=== PATIENT | male | born 1985 | race Caucasian/White ===

== ENCOUNTER 2021-06-07 17:01 | Emergency (ER) | payer OTHER, SELFPAY ==
[2021-06-07 17:02] VITALS: BP 145/111; PULSE 91; RESP 17; TEMP 36.6; O2SAT 99; BMI 28.3
[2021-06-07 17:08] VITALS: BP 145/111; PULSE 91; RESP 17; TEMP 36.6; O2SAT 99
--- NOTE | 2021-06-07 17:49 | NURSING ---
DR CARINE DEWEY
--- NOTE | 2021-06-07 18:50 | EX.ED.GUMALE ---
HPI History of Present Illness Chief Complaint: Complaint Narrative Narrative: Patient presents with penile pain after having vigorous sex 4 days ago. It was right lateral. He has no other complaints other than the pain and the swelling has gone down, he also just got a call from his partner that she has chlamydia. PFSH PFSH Home Medications doxycycline hyclate 100 mg PO BID #20 cap 06/07/21 [Rx Last Taken Unknown] Allergy/AdvReac Type Severity Reaction Status Date / Time pertussis vaccine,fluid Allergy Other Verified 06/07/21 17:04 [Pertussis Vaccine,Fluid] Social History Smoking Status: Current some day smoker tobacco type: cigarettes and smokeless tobacco ROS ROS ED ROS Narrative Past medical history: Reviewed, none Medications: Reviewed Social history: Noncontributory Review of systems: All systems negative except as indicated General: No fever Gastrointestinal: No abdominal pain, nausea vomiting or diarrhea Genitourinary: Penile pain as in HPI. No dysuria Musculoskeletal: Denies myalgias no difficulty with ambulation Skin: No rash Neurological: No sensory deficit Hematologic: No easy bleeding or easy bruising EXAM Physical Exam Narrative Exam Narrative: Physical exam General: Well nourished, Well developed, No Acute Distress. Cardiovascular: Regular rate, Regular rhythm Respiratory: No distress, CTA bilaterally Abdomen: Soft, Nontender, Nondistended : Examination of the penis reveals quite a bit of pain and swelling laterally, otherwise no discharge. No testicular pain. Back: Nontender, Normal Inspection. Negative for: CVA tenderness Extremities: Nontender, No edema Skin: Normal color, No rash Const Vital Signs: 06/07/21 17:02 06/07/21 17:08 Temperature 97.9 F 97.9 F Temperature Source Temporal Temporal Pulse Rate 91 91 Respiratory Rate 17 17 Blood Pressure 145/111 H 145/111 H Blood Pressure Mean 122 122 Pulse Ox 99 99 Oxygen Delivery Method Room Air Room Air MDM MDM MDM Narrative Medical decision making narrative: Patient was seen by urology, Dr. Rome who thinks the patient has a partial tear and will see him in the office, he is otherwise under strict instructions not to have sexual intercourse for 2 weeks. I will treat him with antibiotics for presumed GC and/or chlamydia. Discharge Plan Triage Chief Complaint: Complaint ED Provider: Steven Brewster Dx/Rx/DC Orders Clinical Impression: Penis injury Instructions: Chlamydia Prescriptions: New doxycycline hyclate 100 mg capsule 100 mg PO BID Qty: 20 RF: 0 Primary Care Provider: Care Physician,No Primary Referrals: Pineda Rome MD [STAFF PHYSICIAN] - (2 weeks) Care Physician,No Primary [Primary Care Provider] - 3-5 Days Disposition Disposition: Home, Self Care
[2021-06-07] MEDS: Doxycycline 100 MG CAPSULE PO (19:14)
[2021-06-07] MEDS: Ceftriaxone 500 MG Vial 250 MG IM (19:17)
--- NOTE | 2021-06-07 19:18 | PCM.CONS.U ---
Assessment & Plan Assessment/Plan (1) Penis injury: QUALIFIERS: Encounter type: initial encounter Qualified Code(s): S39.94XA - Unspecified injury of external genitals, initial encounter PLAN: On examination he has no defect in his cavernosal body he has been able to have normal straight erections with some minor discomfort since the incident. I recommended he stop using cock rings etc. during intercourse that could cause more bending also recommended he stop having intercourse for 2 weeks to allow the area to heal completely I would want to follow-up in my office for 2 weeks for an examination to make sure there is no changes were curvature. He understands is possible he could develop curvature Peyronie's disease as a result of this trauma. At this point I do not see any tear in the cavernosal body that requires surgical intervention. The patient will be discharged home with instructions to follow-up with me in 2 weeks in the office. HPI Consult Data Date of Consult: 06/07/21 HPI Narrative HPI Narrative: DORON SERRATO, is a 35 M who presents To the emergency room he was havig vigorous intercourse a few days ago, he was using a cock ring and during intercourse he heard a snap and had some pain h I looked at the photo and just had a very minor swellinge did not develop any severe swelling he had some minor swelling to the tactic picture on their iPhone on the lateral aspect of the penis in the middle of it. Since then he has been able to have erections reports having a straight erections report having one episode of intercourse without any problems some minor minor discomfort and was able to masturbate once with a straight erections. He has been doing a lot of Google search is wondered if he caused a i may have just had a partial tear of the cavernosal body but not a complete tearnjury to the penis. [facility] Home Medications No Known/Unobtainable [No Known Home Medications] 10/08/13 [History Last Taken Unknown] Allergy/AdvReac Type Severity Reaction Status Date / Time pertussis vaccine,fluid Allergy Other Verified 06/07/21 17:04 [Pertussis Vaccine,Fluid] Social History Smoking Status: Current some day smoker tobacco type: cigarettes and smokeless tobacco ROS Constitutional Constitutional: Denies chills, fever(s) or malaise Eyes Eyes: Denies blurry vision or change in vision ENT HEENT: Reports none Cardiovascular Cardiovascular: Denies chest pain or palpitations Respiratory/Chest Respiratory/Chest: Denies cough or shortness of breath with exertion Gastrointestinal Gastrointestinal: Denies abdominal pain, constipation or diarrhea Musculoskeletal Musculoskeletal: Denies back pain, joint stiffness or joint swelling Integumentary Integumentary: Denies dry skin, jaundice, lesions or rash Neurologic Neurologic: Denies confusion, syncope or weakness Psychiatric Psychiatric: Reports none; Denies anxiety or depression Endocrine Endocrinology: Denies excessive sweating, fatigue or flushing Hematologic/Lymphatic Hematologic/Lymphatic: Denies anemia, easy bleeding or easy bruising Physical Exam Const alert and oriented x3 General Appearance: cooperative HEENT normocephalic, head/scalp atraumatic, EAC's normal and TM's normal bilaterally Eyes PERRL and EOMs intact bilaterally Pupil: sluggish Neck no lymphadenopathy, supple and no JVD General: trachea midline Lymph Lymphatic: no lymphadenopathy noted, lymphedema and lymphadenopathy Resp normal respiratory effort, normal air movement and clear to auscultation bilaterally Cardio regular rate, regular rhythm and peripheral pulses 2+ throughout GI soft to palpation, non-tender and non-distended Narrative: On examination of the penis, I stretch the penis to full length felt along the cavernosal bodies there was no defect no hourglass defect and actually was not painful on exam. He has no swelling and no ecchymosis. Extremity normal capillary refill and no clubbing, cyanosis or edema General Extremity: no tenderness to palpation of joints or extremities Skin no rashes or lesions noted General Skin Exam: turgor normal Lesions: no lesions Rashes: no rashes Neuro CN's II-XII intact bilaterally Speech: speech normal Motor Exam: strength 5/5 throughout; Negative for general weakness Psych thought process normal, cooperative and affect normal Appearance: appropriate
== END 2021-06-07 20:05 | disposition home or self-care (01) ==
PROVIDERS: Emergency Provider Emergency Medicine
DX: S39.94XA Unspecified injury of external genitals, initial encounter (principal); F17.210 Nicotine dependence, cigarettes, uncomplicated; X58.XXXA Exposure to other specified factors, initial encounter
CPT/HCPCS: 96372; 99282

== ENCOUNTER → 2022-10-19 | Outpatient (CLI) | payer OTHER, SELFPAY ==
--- NOTE | 2022-10-19 09:08 | ECHOD_ITS ---
Reason For Study: CHEST PAIN Procedure This was a 2D Doppler, Color Flow transthoracic echocardiogram. Myocardial strain analysis was performed in this exam to aid in the assessment of cardiac function. Exam performed in department. Left Ventricle Normal size and thickness. The left ventricular ejection fraction is 65 %. Normal diastololic function. Right Ventricle Normal right ventricle. Atria The left and right atria are normal. Mitral Valve Trivial mitral valve insufficiency. Tricuspid Valve Trivial tricuspid valve insufficiency. Unable to estimate RV systolic pressure due to insufficient tricuspid regurgitant envelope. Aortic Valve Normal aortic valve. Pulmonic Valve The pulmonic valve is not well visualized. Great Vessels Normal sized aortic root. Pericardium/Pleural No pericardial effusion. MMode/2D Measurements & Calculations LVIDd: 5.0 cm IVSd: 0.90 cm Ao root diam: 3.2 cm LVIDs: 3.5 cm LVPWd: 1.2 cm RVDd: 3.6 cm FS: 31.4 % LAV(MOD-bp): 26.0 ml LVAd ap4: 33.5 cm2 SV(MOD-sp4): 63.2 ml LAV(MOD-bp) Indexed: 12.7 ml/m2 LVLd ap4: 9.1 cm LAV(MOD-sp2): 36.7 ml EDV(MOD-sp4): 99.9 ml LAV(MOD-sp4): 18.3 ml EDV(sp4-el): 104.5 ml LVAs ap4: 17.7 cm2 LVLs ap4: 7.5 cm ESV(MOD-sp4): 36.7 ml ESV(sp4-el): 35.6 ml EF(MOD-sp4): 63.2 % EF(sp4-el): 65.9 % SV(sp4-el): 68.9 ml LA A4 area: 10.5 cm2 LA dimension(2D): 3.4 cm RA A4 area: 10.2 cm2 Time Measurements MV dec time: 0.27 sec Doppler Measurements & Calculations MV E max forrest: 70.8 cm/sec Lat Peak E' Forrest: 15.3 cm/sec Med Peak E' Forrest: 13.8 cm/sec MV A max forrest: 62.4 cm/sec E/E' lat: 4.6 E/E' med: 5.1 MV E/A: 1.1 MV V2 max: 86.2 cm/sec Ao V2 max: 163.1 cm/sec MV max P.0 mmHg MV dec slope: 291.7 cm/sec2 Ao max P.6 mmHg MV V2 mean: 56.0 cm/sec Ao V2 mean: 111.1 cm/sec MV mean P.4 mmHg Ao mean P.7 mmHg MV V2 VTI: 29.4 cm Ao V2 VTI: 31.2 cm LV V1 max: 129.7 cm/sec PA V2 max: 107.3 cm/sec LV V1 max P.8 mmHg PA V2 mean: 88.6 cm/sec LV V1 mean P.1 mmHg LV V1 mean: 82.4 cm/sec LV V1 VTI: 22.8 cm ECHO/Echo Complete Interpretation Summary The left ventricular ejection fraction is 65 %. Ordering Physician: Allison Richmond Referring Physician: Allison Richmond Performed By: Malia Domingo RCS
== END | disposition home or self-care (01) ==
PROVIDERS: PCP Family Medicine; Referring Provider Family Medicine; Visit Provider Family Medicine
DX: R07.9 Chest pain, unspecified (principal)
CPT/HCPCS: 93306

== ENCOUNTER → 2023-11-08 | Outpatient (CLI) | payer OTHER, SELFPAY ==
[2023-11-08 13:16] LABS: ALB/GLOB Ratio 1.1 RATIO (0.9-2.4); AST(SGOT) 23 U/L (15-37); Alanine Aminotransfer ALT/SGPT 59 U/L (16-61); Alkaline Phosphatase 76 U/L (45-117); Anion Gap 5 (5-15); BUN 16 mg/dL (7-18); BUN/Creat Ratio 14.3 RATIO (10-20); Calcium,Total 8.9 mg/dL (8.5-10.1); Chloride 107 mmol/L (98-107); Creatinine, Serum 1.12 mg/dL (0.70-1.30); EST Glomerular Filtration Rate 78 mL/min (>60); Est Glom Filt Rate - Afr Amer 95 mL/min (>60); Globulin 3.7 g/dL (2.2-4.2); Glucose 78 mg/dL (74-106); Potassium 4.6 mmol/L (3.5-5.1); Protein, Total 7.7 g/dL (6.4-8.2); Sodium Level 139 mmol/L (136-145); Thyroid Stim Hormone (TSH) 0.91 uIU/mL (0.358-3.74)
== END | disposition home or self-care (01) ==
LOC: BFHLAB 10:39
PROVIDERS: PCP Family Medicine; Visit Provider Family Medicine
DX: I10 Essential (primary) hypertension (principal)
CPT/HCPCS: 36415; 80053; 84443